=== PATIENT | male | born 1955 | race African-American/Black ===

== ENCOUNTER 2021-09-08 00:08 | Emergency (ER) | payer SELFPAY ==
[~2021-09-08] VITALS: Ht 185.4 cm; Wt 94.0 kg
[2021-09-08] MEDS ORDERED: NITROGLYCERIN 0.4MG TABLET SL SL PRN (01:15)
[2021-09-08] MEDS ORDERED: ASPIRIN 81MG TABLET PO ONE (01:15)
[2021-09-08 02:50] LABS: BASOPHILS % 0.4 % (0.0-2.0); HEMOGLOBIN. 14.3 g/dL (14.0-18.0); LYMPHOCYTES % 32.9 % (20.0-50.0); MEAN CORPUSCULAR HEMOGLOBIN 32.6 pg (28.0-32.0); MEAN CORPUSCULAR VOLUME 95.4 fL (80.0-94.0); MEAN PLATELET VOLUME 6.4 fl (7.4-10.4); MONOCYTES % 13.9 % (2.0-8.0); NEUTROPHILS % 49.8 % (40.0-76.0); PLATELET 430 x1000/uL (130-400); RED CELL DISTRIBUTION WIDTH 14.9 % (11.6-14.6)
[2021-09-08 02:56] LABS: CHLORIDE 108 mEq/L (98-107)
[2021-09-08] MEDS ORDERED: ASPIRIN 81MG TABLET PO NR (03:15)
[2021-09-08] MEDS ORDERED: IBUP-2029 MT (04:41)
[2021-09-08 05:30] VITALS: BP 137/82
== END 2021-09-08 05:47 | disposition home or self-care (01) ==
LOC: ER 00:08
DX: R07.89 Other chest pain (principal); R05.9 Cough, unspecified; R42 Dizziness and giddiness
CPT/HCPCS: 36415; 71045; 80053; 83880; 84484; 85025; 85379; 93005; 99285; Z7610

== ENCOUNTER 2023-01-22 00:22 | Emergency (ER) | payer OTHER ==
[~2023-01-22] VITALS: Ht 180.3 cm; Wt 83.0 kg
[~2023-01-22 00:22] MED LIST: IBUP-2029 MT
[2023-01-22 00:25] VITALS: O2SAT 98
[2023-01-22] MEDS ORDERED: MORPHINE SULFATE 4 MG/ML CPJ (NOT FOR IM USE) IV STA (01:16)
[2023-01-22] MEDS ORDERED: ONDANSETRON HCL 4MG/2ML INJ IV STA (01:16)
[2023-01-22 01:28] LABS: BASOPHILS % 0.5 % (0.0-2.0); EOSINOPHILS % 2.4 % (0.0-5.0); HEMATOCRIT. 41.6 % (42.0-52.0); HEMOGLOBIN. 14.2 g/dL (14.0-18.0); LYMPHOCYTES % 28.3 % (20.0-50.0); MEAN CORPUSCULAR HEMOGLOBIN 33.2 pg (28.0-32.0); MEAN CORPUSCULAR HGB CONC 34.1 g/dL (31.0-37.0); MEAN CORPUSCULAR VOLUME 97.2 fL (80.0-94.0); MEAN PLATELET VOLUME 6.9 fl (7.4-10.4); MONOCYTES % 12.8 % (2.0-8.0); PLATELET 401 x1000/uL (130-400); RED BLOOD CELL COUNT 4.28 mill/uL (4.7-6.1); RED CELL DISTRIBUTION WIDTH 14.2 % (11.6-14.6); WHITE BLOOD COUNT 4.9 x1000/uL (4.5-11.0)
[2023-01-22] MEDS ORDERED: SODIUM CHLORIDE 0.9% 1,000 ML IV ONE ×2 (01:30)
[2023-01-22 01:40] LABS: ALANINE AMINOTRANSFERASE 26 IU/L (10-49); ALBUMIN 4.2 g/dL (3.2-4.8); ASPARTATE AMINOTRANSFERASE 38 IU/L (<34); BILIRUBIN TOTAL 0.4 mg/dL (0.1-1.0); CALCIUM 9.2 mg/dL (8.7-10.4); CARBON DIOXIDE 28 mEq/L (21-32); CHLORIDE 105 mEq/L (98-107); CREATININE 0.8 mg/dL (0.6-1.3); GLUCOSE 109 mg/dL (70-105); POTASSIUM 3.5 mEq/L (3.5-5.1); PROTEIN TOTAL 6.5 g/dL (6.0-8.3); SODIUM 139 mEq/L (136-145); UREA NITROGEN BLOOD 15 mg/dL (9-23)
[2023-01-22] MEDS ORDERED: METH-653 MT (05:43)
[2023-01-22] MEDS ORDERED: IBUP-2029 MT (05:43)
[2023-01-22 06:02] VITALS: BP 118/85; PULSE 60; RESP 10; TEMP 97.5
[2023-01-22] MEDS ORDERED: IOHEXOL-300 100 ML BOTTLE ONE (06:03)
== END 2023-01-22 06:15 | disposition home or self-care (01) ==
LOC: ER 01:10
DX: S13.9XXA Sprain of joints and ligaments of unspecified parts of neck, initial encounter (principal); S33.5XXA Sprain of ligaments of lumbar spine, initial encounter; V49.9XXA Car occupant (driver) (passenger) injured in unspecified traffic accident, initial encounter; Y93.89 Activity, other specified; Y92.89 Other specified places as the place of occurrence of the external cause; Y99.8 Other external cause status
CPT/HCPCS: 99291; 70450; 96374; 96361; 71045; 96375; 80053; 85025; 86850; 86900; 86901; 36415; 71260; 72125; 74177; Q9967; J2405; J2270; J7030

== ENCOUNTER 2024-06-25 10:30 | Emergency (ER) | payer MEDICARE ==
[~2024-06-25] VITALS: Ht 185.4 cm; Wt 100.0 kg
[~2024-06-25 10:30] MED LIST changes: -IBUP-2029 MT; +OMEP10CA5 MT
[2024-06-25 10:36] VITALS: TEMP 36.8; O2SAT 98
[2024-06-25] MEDS ORDERED: TOPUD PO (12:18)
[2024-06-25] MEDS: TETANUS, DIPHTHERIA, PERTUSSIS VAC/PF 0.5ML (>10YR OLD) IM ONE (12:28)
[2024-06-25 13:04] VITALS: BP 141/90; PULSE 87; RESP 15; O2SAT 95
== END 2024-06-25 13:03 | disposition home or self-care (01) ==
LOC: ER 10:30
DX: S80.812A Abrasion, left lower leg, initial encounter (principal); Z79.899 Other long term (current) drug therapy; W34.00XA Accidental discharge from unspecified firearms or gun, initial encounter; Y93.89 Activity, other specified; Y92.89 Other specified places as the place of occurrence of the external cause; Y99.8 Other external cause status
CPT/HCPCS: 73590; 90471; 90715; 99283; A4606

== ENCOUNTER 2024-12-23 17:17 | Emergency (ER) | payer MEDICARE, OTHER ==
[~2024-12-23] VITALS: Ht 185.4 cm; Wt 85.0 kg
[~2024-12-23 17:17] MED LIST changes: +TOPUD PO
[2024-12-23 18:09] VITALS: TEMP 36.9; O2SAT 97
[2024-12-23] MEDS: KETOROLAC 30MG/ML VIAL IM ONE (19:54)
[2024-12-23] MEDS ORDERED: KETO10TA2 MT (20:07)
[2024-12-23 20:34] VITALS: BP 126/86; PULSE 82; RESP 16; O2SAT 98
== END 2024-12-23 20:39 | disposition home or self-care (01) ==
LOC: ER 17:17
DX: S62.307A Unspecified fracture of fifth metacarpal bone, left hand, initial encounter for closed fracture (principal); F12.90 Cannabis use, unspecified, uncomplicated; Z98.890 Other specified postprocedural states; Z79.899 Other long term (current) drug therapy; X58.XXXA Exposure to other specified factors, initial encounter; Y93.89 Activity, other specified; Y92.89 Other specified places as the place of occurrence of the external cause; Y99.8 Other external cause status
CPT/HCPCS: 99284; 81025; 73110; 73130; 29125; 96372; J1885; A6449; A4565